=== PATIENT | male | born 1955 | race Caucasian/White ===

== ENCOUNTER 2017-12-13 09:57 | Day surgery (SDC) | payer BC, OTHER ==
[2017-12-12 08:25] VITALS: BMI 42.0
[~2017-12-13 09:57] MED LIST: LACTATED RINGERS 1,000 ML IV SCH
[2017-12-13 10:25] VITALS: TEMP 98.7
[2017-12-13] MEDS ORDERED: LIDOCAINE 1% 20 ML VIAL (10MG/ML) FOR IV START INTRADERMA ONE (10:34)
[2017-12-13] MEDS ORDERED: PROPOFOL 10 MG/ML 20 ML VIAL IV ONE (10:39)
--- NOTE | 2017-12-13 11:36 | P.PCN ---
Date of Procedure: 12/13/17 Procedure(s) Performed: Procedure: Colonoscopy and polypectomy. Preoperative diagnosis: History of polyps and intermittent rectal bleeding. Postoperative diagnosis: 1. Sigmoid diverticulosis with no evidence of acute diverticulitis or strictures. 2. Low-grade internal hemorrhoids without bleeding at the time of this exam. 3. Small polyps in the cecum and around the hepatic flexure snared but no large polyps or cancer. Preparation: HalfLytely prep. Sedation: Was provided by anesthesia. Brief clinical history: The patient is 62-year-old male who is scheduled for this evaluation because of intermittent rectal bleeding that he had over the last 2 or 3 months. The patient has history of polyps and his last exam was around 3 or 4 years ago. He has no abdominal complaints, rectal pain or anemia. Procedure: With the patient on his left lateral decubitus position and after informed consent and adequate sedation, the perianal area was inspected and it did not show any fissures or fistulas. There were no masses felt on digital rectal examination. The Olympus CFQ 160L video colonoscope was then inserted in the rectum in the usual fashion and advanced to the cecum. There were several diverticular orifices seen scattered in the sigmoid with no evidence of acute diverticulitis or strictures. A small polyp was seen in the cecum and 2 small flat polyps were seen around the hepatic flexure which were snared and retrieved by suction but there were no large polyps or cancer. The mucosa appeared healthy. There was no spontaneous bleeding. I retroflexed the endoscope in the rectum before the endoscope was withdrawn. Low-grade internal hemorrhoids were noted with no evidence of bleeding. The patient tolerated the procedure well. Plan: The patient was reassured. Discussed dietary measures and local care for hemorrhoids. I would suggest repeat colonoscopy in 3 years. Further plans based on his course. He will follow up with you as planned and I will be happy to see in the office sooner if his symptoms persist.
[2017-12-13 11:50] VITALS: BP 139/83; PULSE 59; RESP 18
== END 2017-12-13 11:55 | disposition home or self-care (01) ==
LOC: ORWHC2ENDO 09:57
DX: D12.0 Benign neoplasm of cecum (principal); D12.3 Benign neoplasm of transverse colon; K57.30 Diverticulosis of large intestine without perforation or abscess without bleeding; K64.8 Other hemorrhoids; I10 Essential (primary) hypertension; E78.5 Hyperlipidemia, unspecified; Z79.899 Other long term (current) drug therapy; Z86.010 Personal history of colon polyps
CPT/HCPCS: 45385; 88305; J2704